=== PATIENT | female | born 1990 | race Caucasian/White ===

== ENCOUNTER 2019-12-28 11:10 | Day surgery (SDC) | payer OTHER ==
[2019-12-28] MEDS ORDERED: mitoMYcin 0.2 MG/VIAL KIT FOR OPHTHALMIC USE (J7315 PER 0.2MG) As Ordered ONE (12:24)
[2019-12-28] MEDS ORDERED: LIDOCAINE W/EPINEPHRINE 1% 20ML VIAL As Ordered ONE (12:25)
[2019-12-28] MEDS ORDERED: PROPARACAINE 0.5% OPHTH SOL 15ML As Ordered ONE (12:57)
[2019-12-28] MEDS ORDERED: fentaNYL 100 MCG/2 ML INJECTION (J3010) As Ordered ONE ×2 (13:12→13:52)
[2019-12-28] MEDS ORDERED: MIDAZOLAM INJ 2MG/2ML VIAL (J2250 PER 1MG) As Ordered ONE (13:12)
[2019-12-28] MEDS ORDERED: POVIDONE-IODINE 5% OPHTH PREP SOL 30ML As Ordered ONE (13:28)
--- NOTE | 2020-03-01 10:10 | RO ---
DATE OF PROCEDURE: 12/28/2019 PREOPERATIVE DIAGNOSIS: Pterygium of the right eye. POSTOPERATIVE DIAGNOSIS: Pterygium of the right eye. PROCEDURE PERFORMED: Excision of pterygium of the right eye with use of Mitomycin-C and placement of cryopreservative amniotic membrane graft. SURGEON: Marlon Holland DO ANESTHESIA: Local with MAC, 2% Lidocaine with epinephrine. DETAILS OF PROCEDURE: The patient was seen and identified in the preoperative area. The consents were reviewed and the surgical eye was marked. The patient received topical antibiotics and anesthetic to the surface of the surgical eye. The patient was transferred to the operating room. The eye was prepped and draped in a sterile fashion. I obtained images to isolate the upper and lower eye lids and a wire lid speculum was placed. At that time, the patient received 2% lidocaine with epinephrine injected on a 3 cc syringe with a 30-gauge needle subconjunctivally. This was spread with a cotton-tipped applicator. At that time, using blunt forceps and Michael scissors, the head of the pterygium was removed from the remaining conjunctiva and the nasal corneal limbus, and this was sent to pathology for examination. At that time, careful dissection was made posteriorly using blunt forceps and Michael scissors until all of the pterygium was removed. Any visibile freely mobile Tenon's capsule was removed and discarded. Gentle wet-field cautery was applied to any bleeding vessels. At that time, the defect was measured to be approximately 5 x 7-mm. A cryopreserved amniotic membrane graft was fashioned to the appropriate size. The graft was brought near the patient's eye. It was placed over the corneal surface. The amniotic graft was tacked to the corneal limbus with two 10-0 nylon sutures. Using Mitomycin-C, this was injected into the leading conjunctival edge with 0.1 cc of volume. BSS was used to vigorously wash this away. The area was dried with . At that time, 2 cc of glue was placed over the scleral bed. The graft was then flipped into position and then the graft and glue were adhered and gentle smoothing motions and a squeegee effect were used to cause adherence. Additional Tisseel was used to glue the remaining conjunctival edges to the amniotic membrane graft and any excess glucose was trimmed with Vannas scissors and discarded. A bur was used to remove any fibers of the pterygium from the nasal corneal limbus. The patient has a preexisting history of LASIK, so there was a LASIK flap present, and there was careful attention to not be too aggressive to remove or disrupt the flap edge. A contact lens was placed. The patient tolerated the procedure well. The speculum and drapes were removed. The patient was transferred to the PACU in stable condition. JILLIAN
== END 2019-12-28 15:00 | disposition home or self-care (01) ==
LOC: M SDC 11:10
PROVIDERS: ATTEND Ophthalmology
DX: H11.041 Peripheral pterygium, stationary, right eye (principal); F90.9 Attention-deficit hyperactivity disorder, unspecified type; K21.9 Gastro-esophageal reflux disease without esophagitis; Z79.899 Other long term (current) drug therapy
CPT/HCPCS: 65426; 88304; C1762; J2250; J3010; J7315

== ENCOUNTER → 2020-04-30 | Outpatient (CLI) | payer SELFPAY | LOC: M LABCAHC 11:25 | PROVIDERS: ATTEND Pediatrics | DX: Z11.59 Encounter for screening for other viral diseases (principal) ==